=== PATIENT | male | born 1940 | race Caucasian/White ===

== ENCOUNTER 2017-01-25 14:44 | Emergency (ER) | payer MEDICARE, BC ==
--- NOTE | 2017-01-25 16:33 | UC ---
Respiratory Complaint HPI - History of Current Complaint Stated Complaint: COUGH Time Seen by Provider: 01/25/17 16:24
--- NOTE | 2017-01-25 17:13 | UC ---
Respiratory Complaint HPI - HPI Summary HPI Summary: Complains of a cough that started two days ago. It is mostly non-productive. At times he has "coughing spells" but no shortness of breath or wheezing. He did not sleep well last night due to the cough. Has a history of nasal drainage that he sees ENT for. Has a history of pneumonia and is concerned that this will lead to pneumonia. - History of Current Complaint Chief Complaint: UCRespiratory Stated Complaint: COUGH Time Seen by Provider: 01/25/17 16:24 Hx Obtained From: Patient Onset/Duration: Gradual Onset Timing: Intermittent Episodes Severity Initially: Moderate Severity Currently: Moderate Character: Cough: Nonproductive - productive at times Aggravating Factors: Deep Breaths, Recumbent Position Alleviating Factors: Upright Position Associated Signs And Symptoms: Negative: Dyspnea, Fever, Chills, Pleuritic Chest Pain, Wheezing, Hemoptysis - Allergies/Home Medications Allergies/Adverse Reactions: Allergies Allergy/AdvReac Type Severity Reaction Status Date / Time No Known Allergies Allergy Verified 01/25/17 16:27 Home Medications: Home Medications Aspirin Low Dose CHEW TAB* [Aspirin Low Dose TAB*] 81 mg PO DAILY 01/25/17 [ History Confirmed 01/25/17] Cetirizine* [ZyrTEC*] 10 mg PO DAILY 01/25/17 [History Confirmed 01/25/17] Fluticasone NASAL SPRAY 50MCG* [Flonase NASAL SPRAY 50MCG*] 2 spray BOTH NARES DAILY 01/25/17 [History Confirmed 01/25/17] Metoprolol Tartrate TAB* [Lopressor TAB*] 25 mg PO DAILY 01/25/17 [History Confirmed 01/25/17] Montelukast Sodium TAB* [Singulair TAB*] 10 mg PO DAILY 01/25/17 [History Confirmed 01/25/17] Pioglitazone TAB* [Actos TAB*] 30 mg PO DAILY 01/25/17 [History Confirmed ] Pseudoephedrine-Guaifenesin [Mucinex D] 1 tab PO PRN 01/25/17 [History] Tamsulosin CAP* [Flomax CAP*] 0.4 mg PO DAILY 01/25/17 [History Confirmed ] Telmisartan 40 mg PO DAILY 01/25/17 [History Confirmed 01/25/17] glipiZIDE TAB* [Glucotrol TAB*] 10 mg PO DAILY 01/25/17 [History Confirmed 01/25] PMH/Surg Hx/FS Hx/Imm Hx Previously Healthy: No - History of DM, hypertension Endocrine History Of: Reports: Diabetes Cardiovascular History Of: Reports: Hypertension Comment Only: Cardiac Disorders - IRREGULAR HEART BEAT, SEES- DR FAJARDO. - Surgical History Surgical History: None - Social History Alcohol Use: Rare Substance Use Type: None Smoking Status (MU): Former Smoker When Did the Patient Quit Smoking/Using Tobacco: AGE 27 - Immunization History Most Recent Influenza Vaccination: OCT 2016 Most Recent Pneumonia Vaccination: DEC 2016 Review of Systems Constitutional: Negative Skin: Negative Eyes: Negative ENT: Nasal Discharge Respiratory: Cough Cardiovascular: Negative Gastrointestinal: Negative Genitourinary: Negative Motor: Negative Neurovascular: Negative Musculoskeletal: Negative Neurological: Negative Psychological: Negative All Other Systems Reviewed And Are Negative: Yes Physical Exam Triage Information Reviewed: Yes Appearance: Well-Appearing, No Pain Distress, Well-Nourished Vital Signs: Initial Vital Signs Temp 97.5 F 01/25/17 16:32 Pulse 74 01/25/17 16:32 Resp 20 01/25/17 16:32 BP 123/49 01/25/17 16:32 Pulse Ox 95 01/25/17 16:32 Vital Signs Reviewed: Yes Eye Exam: Normal Eyes: Positive: Conjunctiva Clear ENT: Positive: Normal ENT inspection, Pharynx normal, TMs normal. Negative: Tonsillar swelling, Tonsillar exudate Neck exam: Normal Neck: Positive: Supple, Nontender, No Lymphadenopathy Respiratory Exam: Other - Cough on exam Respiratory: Positive: Chest non-tender, No respiratory distress, No accessory muscle use, Crackles - right upper and lower lobes, cleared with cough. Negative: Normal breath sounds Cardiovascular Exam: Normal Cardiovascular: Positive: RRR, No Murmur Musculoskeletal Exam: Normal Neurological Exam: Normal Neurological: Positive: Alert Psychological Exam: Normal Skin Exam: Normal UC Diagnostic Evaluation - Laboratory O2 Sat by Pulse Oximetry: 95 Respiratory Course/Dx - Differential Dx/Diagnosis Provider Diagnoses: acute bronchitis Discharge - Discharge Plan Condition: Stable Disposition: HOME Patient Education Materials: Acute Bronchitis (ED) Referrals: [facility] [Primary Care Provider] - Additional Instructions: Call or return if you develop increasing fever, shortness of breath, chest pain , bloody sputum, or otherwise worsen. If you have not improved at all after several days, contact your primary care physician or return here.
[2017-01-25] MEDS ORDERED: Albuterol/Ipratropium NEB.SOL* Albuterol 2.5 MG/Ipratropium 0.5 MG 3 ML INH ONE (17:34)
--- NOTE | 2017-01-25 17:40 | RAD ---
INDICATION: Cough COMPARISON: None TECHNIQUE: PA and lateral dual-energy views were obtained. FINDINGS: Bones/Soft Tissues: There are no acute bony findings. Cardiomediastinal: The cardiomediastinal silhouette is normal. Lungs: There are no infiltrates. Pleura: There are no pleural effusions. Other: None IMPRESSION: NO ACTIVE DISEASE.
[2017-01-25] MEDS ORDERED: Albuterol HFA INHALER* 8 gm MDI INH ONE (17:47)
[2017-01-25 18:01] VITALS: BP 123/69
== END 2017-01-25 18:11 | disposition home or self-care (01) ==
LOC: UCCORT 14:44
DX: J20.9 Acute bronchitis, unspecified (principal); E11.9 Type 2 diabetes mellitus without complications; Z79.84 Long term (current) use of oral hypoglycemic drugs; I10 Essential (primary) hypertension; Z87.891 Personal history of nicotine dependence
CPT/HCPCS: 71020; 99202; A9270-GY; G0463